=== PATIENT | male | born 2000 | race Caucasian/White ===

== ENCOUNTER 2022-05-11 02:28 | Emergency (ER) | END 2022-05-11 03:13 | disposition home or self-care (01) | LOC: ERS 02:28 | DX: L03.115 Cellulitis of right lower limb (principal); F17.210 Nicotine dependence, cigarettes, uncomplicated | CPT/HCPCS: 99283 ==

== ENCOUNTER 2022-05-13 17:40 | Emergency (ER) | payer BC ==
[~2022-05-13 17:40] MED LIST: Iopamidol-370 76% 500 ML 1 ML ONE
[2022-05-13] MEDS ORDERED: Clindamycin/D5W 900 mg/50 ml Premix Bag ONE (20:02)
== END 2022-05-13 21:22 | disposition home or self-care (01) ==
LOC: ERS 17:40
DX: L03.115 Cellulitis of right lower limb (principal); L02.611 Cutaneous abscess of right foot; F17.290 Nicotine dependence, other tobacco product, uncomplicated
CPT/HCPCS: 96365; J3490; Q9967

== ENCOUNTER 2023-12-08 21:57 | Emergency (ER) | payer BC | END 2023-12-08 23:46 | disposition home or self-care (01) | LOC: ERS 21:57 | DX: S06.0X0A Concussion without loss of consciousness, initial encounter (principal); R03.0 Elevated blood-pressure reading, without diagnosis of hypertension; X58.XXXA Exposure to other specified factors, initial encounter | CPT/HCPCS: 70450; 72125 ==

== ENCOUNTER 2025-10-28 22:46 | Emergency (ER) | payer BC ==
[2025-10-29] MEDS ORDERED: Cephalexin 250 MG CAP ONE ×2 (01:10→01:12)
[2025-10-29] MEDS ORDERED: HYDROcodone/Acetaminophen 5/325 mg Tablet ONE (01:10)
== END 2025-10-29 01:25 | disposition home or self-care (01) ==
LOC: ERS 22:46
DX: S61.012A Laceration without foreign body of left thumb without damage to nail, initial encounter (principal); Z23 Encounter for immunization; W26.0XXA Contact with knife, initial encounter
CPT/HCPCS: 12002; 90471; 90715; J0665